=== PATIENT | male | born 1960 | race Caucasian/White ===

== ENCOUNTER 2018-11-15 15:46 | Outpatient (CLI) | payer OTHER ==
--- NOTE | 2018-11-16 14:08 | MRI Report ---
Reason: PAIN IN RIGHT SHOULDER Procedure Date: 11/15/2018 Accession Number: [id number] / [id number] Procedure: MRI - Shoulder RT W/O CPT Code: FULL RESULT: EXAM: RIGHT SHOULDER MRI WITHOUT CONTRAST EXAM DATE: 11/15/2018 04:16 PM. CLINICAL HISTORY: Right shoulder pain. Biceps deformity. Patient was chopping wood. COMPARISON: None. TECHNIQUE: Multiplanar, multisequence T1-weighted and fluid-sensitive sequences of the shoulder without contrast. Other: None. FINDINGS: Acromioclavicular Region: There is an os acromiale. There is edema and cyst formation in the distal ends of the acromion and clavicle, as well as between the os acromiale and the adjacent acromion. The findings suggest moderate osteoarthritis of the acromioclavicular joint and pseudoarticulation at the junction of the acromion and the accessory ossification center. There is narrowing of the subacromial space. There is a moderate sized bursal effusion. Glenohumeral Region: No subluxation. No effusion or loose bodies. The articular cartilage is unremarkable. Bone Marrow: No fracture, marrow edema or bone lesions. Labrum: The edematous proximal stump of the biceps tendon is visible at the biceps labral complex. The labrum appears otherwise intact. Musculature/Rotator Cuff: There is thickening of the supraspinatus tendon consistent with moderate tendinosis. There is a low-grade intrasubstance tear of the insertion measuring approximately 5 x 5 mm. There is a 10 x 8 mm high-grade partial-thickness, intrasubstance tear of infraspinatus with moderate surrounding tendinosis. There is moderate subscapularis tendinosis. There is a high-grade partial-thickness tear of the deep and superficial fibers at the distal insertion. No edema or fatty atrophy. Biceps Tendon: There is a complete rupture of the long head of biceps tendon which is not visible in the bicipital groove. Other: The subcutaneous tissues are unremarkable. IMPRESSION: 1. 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 There is also moderate acromioclavicular osteoarthritis. 2. Tendinosis and low-grade partial thickness tear of supraspinatus. Tendinosis and a high-grade partial-thickness tear of infraspinatus. 3. Severe tendinosis and high-grade partial thickness tearing of the deep and superficial fibers of subscapularis at the insertion. 4. Complete rupture of the long head of biceps. RADIA
== END 2018-11-15 15:47 | disposition home or self-care (01) ==
LOC: DI 15:46
PROVIDERS: ATTEND Family Medicine
DX: M89.8X1 Other specified disorders of bone, shoulder (principal); M19.011 Primary osteoarthritis, right shoulder; M75.101 Unspecified rotator cuff tear or rupture of right shoulder, not specified as traumatic; S46.111A Strain of muscle, fascia and tendon of long head of biceps, right arm, initial encounter

== ENCOUNTER 2018-11-28 11:40 | Day surgery (SDC) | payer OTHER ==
[~2018-11-28 11:40] MED LIST: BUPIVACAINE 0.25% PF 30 ML VIAL ONE
[2018-11-28] MEDS ORDERED: LACTATED RINGERS 1,000 ML IV ONE ×2 (12:06→14:30)
--- NOTE | 2018-11-28 12:13 | ANESTHESIA ---
Pre-Anesthesia VS, & Labs - Diagnosis right long head biceps rupture - Procedure right biceps tensdesis Vital Signs: Temp Pulse Resp BP Pulse Ox 36.6 C 85 18 155/100 H 95 11/28/18 11:50 11/28/18 11:50 11/28/18 11:50 11/28/18 11:50 11/28/18 11:50 Height 6 ft 5 in Weight (kg) 95.25 kg - NPO >8 hours Home Medications and Allergies Home Medications: Ambulatory Orders Acetaminophen [Tylenol] 650 mg PO Q6H PRN 11/22/18 Atorvastatin Calcium [Lipitor] 40 mg PO 11/22/18 Cyanocobalamin (Vitamin B-12) [Vitamin B-12] 3,000 mcg PO 11/22/18 Cyclobenzaprine [Flexeril] 10 mg PO TID PRN 11/22/18 Naproxen [Naprosyn] 500 mg PO 11/22/18 traMADol [Ultram] 50 mg PO ONCE 11/22/18 Acetaminophen [Tylenol] 650 mg PO Q6H PRN 11/22/18 Atorvastatin Calcium [Lipitor] 40 mg PO 11/22/18 Cyanocobalamin (Vitamin B-12) [Vitamin B-12] 3,000 mcg PO 11/22/18 Cyclobenzaprine [Flexeril] 10 mg PO TID PRN 11/22/18 Naproxen [Naprosyn] 500 mg PO 11/22/18 traMADol [Ultram] 50 mg PO ONCE 11/22/18 Allergies/Adverse Reactions: Allergies Allergy/AdvReac Type Severity Reaction Status Date / Time bee venom protein (honey bee) Allergy Anaphylaxis Verified 11/22/18 16:09 Anes History & Medical History - Anesthetic History Anesthesia Complications: reports: No previous complications - Medical History Cardiovascular: reports: None Pulmonary: reports: None Gastrointestinal: reports: None Urinary: reports: None Musculoskeletal: reports: Chronic back pain Endocrine/Autoimmune: reports: None Skin: reports: None Smoking Status: Former smoker - Surgical History General: Appendectomy, Colonoscopy Orthopedic: Hip replacement, Other Exam General: Alert Dental: WNL Mallampati classification: II Respiratory: Lungs clear Cardiovascular: Regular rate, Normal S1, Normal S2 Plan Anesthesia Type: General Consent for Procedure(s) Verified and Reviewed: Yes Code Status: Attempt Resuscitation ASA classification: 1-Healthy patient Is this case an emergency?: No
[2018-11-28] MEDS ORDERED: EPINEPHrine 1 MG/ML AMP ONE (12:49)
[2018-11-28] MEDS ORDERED: ePHEDrine 50 MG/ML VIAL IVP ONE (13:00)
[2018-11-28] MEDS ORDERED: MIDAZOLAM 2 MG/2 ML VIAL IVP ONE (13:00)
[2018-11-28] MEDS ORDERED: PHENYLEPHRINE 50 MG/5 ML VIAL IV ONE (13:00)
[2018-11-28] MEDS ORDERED: ROCURONIUM 50 MG/5 ML VIAL IVP ONE (13:00)
[2018-11-28] MEDS ORDERED: DEXAMETHASONE 4 MG/ML VIAL IVP ONE (13:00)
[2018-11-28] MEDS ORDERED: fentaNYL 100 MCG/2 ML VIAL IVP ONE (13:00)
[2018-11-28] MEDS ORDERED: LIDOCAINE-MPF 2% 5 ML VIAL IM ONE (13:00)
[2018-11-28] MEDS ORDERED: ONDANSETRON 4 MG/2 ML VIAL IVP ONE (13:00)
[2018-11-28] MEDS ORDERED: ACETAMINOPHEN 1,000 MG/100 ML 100 ML IV ONE (13:00)
[2018-11-28] MEDS ORDERED: VASOPRESSIN 20 UNIT/ML VIAL IVP ONE (13:00)
[2018-11-28] MEDS ORDERED: PROPOFOL 200 MG/20 ML VIAL IVP ONE (13:00)
[2018-11-28] MEDS ORDERED: GLYCOPYRROLATE 1 MG/5 ML VIAL IVP ONE (13:00)
[2018-11-28] MEDS ORDERED: NEOSTIGMINE 1 MG/1 ML 10 ML MDV IVP ONE (13:00)
[2018-11-28] MEDS ORDERED: cefTRIAXone 2 GM VIAL ONE (13:46)
[2018-11-28] MEDS ORDERED: BUPIVACAINE 0.25% PF 30 ML VIAL SUBQ ONE ×2 (14:14)
[2018-11-28] MEDS ORDERED: oxyCODONE 5 MG TABLET PO PRN (14:58)
[2018-11-28] MEDS ORDERED: ONDANSETRON 4 MG/2 ML VIAL IVP PRN (14:58)
--- NOTE | 2018-11-28 15:08 | OPERATIVE REPORT ---
Operative Report - Other Other Information/Narrative: Date of Surgery: 20 Nov 2018 Pre-Op Diagnosis: Right shoulder long head of biceps rupture, right shoulder arthritis Procedure: Right shoulder arthroscopy with debridement, open biceps tenodesis Postop Diagnosis: Same Primary Surgeon: Jalil Haider Secondary Surgeon: Nick Rayo Complications: None EBL: 20 cc IMPLANTS: Fiber tack by [employer] POSTOPERATIVE PLAN: 0-2 weeks-Sling at all times. Pendulum exercises 5 times per day. 2-6 weeks-Passive and active range of motion without limitations. No active flexion of the elbow 6-12 weeks-Gradually increase strengthening focusing on rotator cuff and scapular stabilizers. 16 weeks and beyond-Introduce dynamic activities. EXAMINATION UNDER ANESTHESIA: Carroll deformity present ARTHROSCOPIC FINDINGS: Rotator interval: Degenerative tearing Biceps tendon & SLAP: Biceps tendon is torn and frayed tissue remains in the joint, this was debrided Subscapularis: Longitudinal tear of the upper border Rotator Cuff: Superior cuff was intact Labrum: Degenerative tearing Glenoid Cartilage: Grade 2/3 changes Humeral Head Cartilage: Grade 1 softening INDICATION FOR SURGERY: 58-year-old man sustained a long head of biceps tendon tear while throwing wood about 2 weeks ago. I discussed extensively with him that he would likely have no functional deficit but would have a Carroll deformity. He reports that he is a very physical individual and does not want any muscular deficit. I counseled him extensively. The risks, benefits, and alternatives were discussed. Risks included pain, bleeding, infection, damage to nearby structures, lack of symptom relief, implant complications, stiffness, need for further surgeries, DVT, PE, stroke, and even . The patient signed a written consent form. PROCEDURE IN DETAIL: The patient was met in the preoperative holding on the day of the procedure. Operative extremity was signed. Consent was verified. The patient desired to proceed. Regional anesthesia was obtained in the preoperative area. The patient was brought to the operating room and surre ndered to anesthesia. Once general anesthesia was obtained the patient was placed in the beach chair position. A soft kidney pad was placed. The head was secured with the neck in a neutral position. The shoulder and arm were prepped and draped in the standard fashion. A surgical timeout was held to confirm the patient identity, procedure, procedure, laterality, allergies, images, and antibiotics. All were in agreement we proceeded. A standard diagnostic arthroscopy was performed utilizing posterior and anterosuperior portals. The anterosuperior portal was created under direct visualization and localized with a spinal needle. The 7 mm cannula was placed anteriorly. The findings of the diagnostic arthroscopy can be found above. The frayed edge of the biceps tendon was throughout the joint and a shaver was used to debride it. I then debrided the SLAP region as well as portions of the anterior labrum. The subscapularis was left as is because it is not symptomatic. MINI OPEN BICEPS TENODESIS: An 8 cm incision was made near the axillary fold centered over the pectoralis major tendon. Electrocautery was used to obtain hemostasis. The fascia was opened with dissection scissors. Blunt digital dissection was used to identify the intertubercular groove just under the pectoralis major tendon. The long head of the biceps tendon was visualized within this interval. The short head of the biceps was retracted with my finger. I finger dissected distally and found the tendon which had retracted and was bulbous. I then debrided portions of the tendon. A veloz elevator was then used to debride all synovial tissue from the intertubercular groove. A fibertack was placed high within the groove. Both limbs of the fibertack were pulled on and it was well fixed. I then whipstitched the biceps tendon starting 2 cm proximal to the musculotendinous junction down to the musculotendinous junction and back up to the same 2 cm location with a single limb of the suture tack. The other suture was placed once through the tendon at the 2 cm location. I then cut all excess tendon off. The suture limb that was passed the single time was then pulled on and this reduced the tendon nicely into the groove. The elbow was fully straightened and there was no excess tension on the repair site. I then tied 10 reverse half hitches alternating to secure the tendon in its place. The wound was then irrigated copiously. I then closed with 2-0 Vicryl in the dermis and running Monocryl in the skin. The portal was were closed with buried Monocryl. Steri-Strips and a sterile dressing was applied. The portal sites were then closed with 3-0 Monocryl buried. The incisions for open procedures were closed with 2-0 Vicryl in the dermis and a running 3-0 Monocryl in the skin. Mastisol and Steri-Strips were applied. A sterile dressing and a sling was applied. The patient was awakened and transferred to the recovery room.
[2018-11-28 16:10] VITALS: BP 119/76
== END 2018-11-28 11:41 | disposition home or self-care (01) ==
LOC: SDS 11:40
PROVIDERS: ATTEND Orthopaedic Surgery
PROC: 0LS14ZZ Reposition Right Shoulder Tendon, Percutaneous Endoscopic Approach (ICD-10-PCS; principal; 2018-11-28 13:00)
PROC: 0RHJ44Z Insertion of Internal Fixation Device into Right Shoulder Joint, Percutaneous Endoscopic Approach (ICD-10-PCS; 2018-11-28 13:00)
DX: S46.111A Strain of muscle, fascia and tendon of long head of biceps, right arm, initial encounter (principal); M19.011 Primary osteoarthritis, right shoulder; S46.011A Strain of muscle(s) and tendon(s) of the rotator cuff of right shoulder, initial encounter; I10 Essential (primary) hypertension; Z87.891 Personal history of nicotine dependence
CPT/HCPCS: 29828; C1713; J0131; J7120

== ENCOUNTER 2019-11-22 09:06 | Outpatient (CLI) | payer OTHER ==
--- NOTE | 2019-11-22 13:31 | MRI Report ---
Reason: RT WRIST PAIN Procedure Date: 11/22/2019 Accession Number: [id number] / [id number] Procedure: MRI - Wrist RT W/O CPT Code: Final Report FULL RESULT: EXAM: RIGHT WRIST MRI WITHOUT CONTRAST EXAM DATE: 11/22/2019 10:17 AM. CLINICAL HISTORY: Wrist pain along the dorsal margin of the second carpometacarpal joint after fall in July 2019 COMPARISON: None. TECHNIQUE: Multiplanar, multisequence T1-weighted and fluid-sensitive sequences of the wrist without contrast. Other: None. FINDINGS: Bones: No fracture. Mild degenerative appearing marrow edema is present along the radial margin of the ulnar head and there is also mild first carpometacarpal and triscaphe osteoarthritis. Small focal region of marrow edema along the radial margin of the distal capitate is probably also degenerative related to mild trapezoid-capitate osteoarthritis. Radiocarpal and intercarpal alignment are anatomic. Ulnar variance is neutral. Ligaments: There is a full-thickness defect in the triangular fibrocartilage where it overlies the radial margin of the ulnar head. The peripheral attachment of the triangular fibrocartilage is intact. The scapholunate and lunatotriquetral ligaments are intact, though assessment is somewhat limited by nonarthrographic technique. The visualized other intrinsic, extrinsic and collateral ligaments are unremarkable. Tendons: The extensor compartment I through and flexor tendons are unremarkable. Musculature: No edema or fatty atrophy. Other: The contents of the carpal tunnel, including the median nerve, are unremarkable. Guyons canal is unremarkable. No ganglion cysts. There is mild edema in the soft tissues circumferentially about the first carpometacarpal joint consistent with mild nonspecific soft tissue injury. The anterior oblique ligament of the first carpometacarpal joint (also known as the beak ligament) is slightly thickened and edematous though it does appear contiguous suspicious for partial tear. This is best seen on series 701 image 8. The more radial sided ligamentous structures of the first carpometacarpal joint are intact. A skin marker was placed over the region of maximal tenderness. The marker overlies the dorsal aspect of the second carpometacarpal joint. The underlying osseous and soft tissues are unremarkable. IMPRESSION: 1. Probable sprain of the first carpometacarpal joint including low-grade partial tear of the anterior oblique ligament (also known as the beak ligament). Trace first carpometacarpal osteoarthritis is also present. 2. Full-thickness defect in the triangular fibrocartilage where it overlies the radial margin of the ulnar head. Ulnar variance is neutral. 3. Mild triscaphe and trapezoid-capitate osteoarthritis. 4. No fracture. RADIA
== END 2019-11-22 09:07 | disposition home or self-care (01) ==
LOC: DI 09:06
PROVIDERS: ATTEND Family Medicine
DX: M18.11 Unilateral primary osteoarthritis of first carpometacarpal joint, right hand (principal); M24.131 Other articular cartilage disorders, right wrist; M19.031 Primary osteoarthritis, right wrist

== ENCOUNTER 2021-01-16 11:02 | Emergency (ER) | payer OTHER ==
[2021-01-16] MEDS ORDERED: diphenhydrAMINE INJ 50 MG/ML VIAL ONE (11:08)
[2021-01-16] MEDS ORDERED: methylPREDNISolone SUCCINATE 125 MG/2 ML VIAL IVP STA (11:11)
[2021-01-16] MEDS ORDERED: FAMOTIDINE 20 MG/2 ML VIAL IVP STA (11:11)
[2021-01-16] MEDS ORDERED: SODIUM CHLORIDE 0.9% 1,000 ML IV STA (11:12)
--- NOTE | 2021-01-16 11:24 | ED Physician Documentation ---
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 Denies rash, chest pain. Mild nausea. gave him 50 mg of oral Benadryl. Review of Systems Ten Systems: 10 systems reviewed and negative PD PAST MEDICAL HISTORY - Past Medical History Cardiovascular: None Respiratory: None Endocrine/Autoimmune: None GI: None : None HEENT: None Psych: None Musculoskeletal: Chronic back pain Derm: None - Past Surgical History General: Appendectomy, Colonoscopy Ortho: Hip replacement, Other - Present Medications Home Medications: Ambulatory Orders Medication Instructions Recorded Confirmed Acetaminophen [Tylenol] 650 mg PO Q6H PRN 11/22/18 11/28/18 Atorvastatin Calcium [Lipitor] 40 mg PO 11/22/18 Cyanocobalamin (Vitamin B-12) 3,000 mcg PO 11/22/18 [Vitamin B-12] Cyclobenzaprine [Flexeril] 10 mg PO TID PRN 11/22/18 11/22/18 Naproxen [Naprosyn] 500 mg PO 11/22/18 traMADol [Ultram] 50 mg PO ONCE 11/22/18 11/28/18 EPINEPHrine [Epinephrine] 0.3 mg IJ ONCE PRN #2 syr 01/16/21 - Allergies Allergies/Adverse Reactions: Allergies Allergy/AdvReac Type Severity Reaction Status Date / Time bee venom protein (honey bee) Allergy Anaphylaxis Verified 01/16/21 11:15 - Social History Smoking Status: Former smoker PD ED PE NORMAL - Vitals Vital signs reviewed: Yes - General General: Alert and oriented X 3, Other (Diaphoretic, tachypneic) - HEENT HEENT: Atraumatic, PERRL, EOMI, Other (Tongue swollen, lip swollen) - Neck Neck: Other (Normal upper respiratory noises. No stridor) - Cardiac Cardiac: RRR - Respiratory Respiratory: No respiratory distress, Clear bilaterally - Abdomen Abdomen: Non tender, Non distended - Derm Derm: No rash, Other (Diaphoretic) - Extremities Extremities: Other (Edema to bilateral hands) - Neuro Neuro: Alert and oriented X 3, No motor deficit, No sensory deficit - Psych Psych: Other (Anxious affect) Results - Vitals Vitals: Vital Signs - 24 hr 01/16/21 01/16/21 01/16/21 11:05 11:10 11:30 Temperature 36.2 C L Heart Rate 79 100 75 Respiratory 18 19 17 Rate Blood Pressure 128/103 H 86/43 L 129/95 H O2 Saturation 100 94 100 01/16/21 01/16/21 01/16/21 11:45 12:00 12:30 Temperature Heart Rate 91 92 Respiratory 18 17 Rate Blood Pressure 108/72 116/79 O2 Saturation 97 95 94 01/16/21 01/16/21 01/16/21 13:00 13:30 14:00 Temperature 36.4 C L Heart Rate 89 90 90 Respiratory 17 14 19 Rate Blood Pressure 118/82 H 101/83 H 110/79 O2 Saturation 94 94 96 01/16/21 01/16/21 01/16/21 14:30 15:00 15:30 Temperature 36.5 C 36.5 C 36.6 C Heart Rate 82 79 78 Respiratory 19 16 18 Rate Blood Pressure 118/82 H 124/92 H 123/90 H O2 Saturation 97 99 98 01/16/21 01/16/21 16:00 16:35 Temperature 36.6 C 36.7 C Heart Rate 97 78 Respiratory 17 16 Rate Blood Pressure 143/92 H 138/98 H O2 Saturation 95 98 Oxygen O2 Source Room air PD MEDICAL DECISION MAKING - ED course ED course: Symptoms resolved after 0.3 of IM epi, 50 IV benadryl administered. 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 Nausea, lightheadedness completely resolved. Patient feels like his swelling is resolved, however his states that the lips are not completely back to baseline. I discussed with him and his family that We can continue to monitor in the emergency department but they elected to go home, stating that they leave it minutes away and will return if he has any new or worsening symptoms. Advised him to peanut picker their EpiPen prescription immediately. Will redose Benadryl prior to discharge. Strict return precautions given. They will follow up with her primary doctor for referral to allergy and immunology. Departure - Departure Disposition: 01 Home, Self Care Clinical Impression: Anaphylactic reaction Condition: Good Instructions: EpiPen Auto Injector Dc, ED Anaphylaxis General Prescriptions: EPINEPHrine [Epinephrine] 0.3 mg IJ ONCE PRN #2 syr PRN Reason: Anaphylaxis Comments: You were seen in the emergency department for a severe allergic reaction (anaphylaxis). We gave you Pepcid, Benadryl, Solu-Medrol, and epinephrine in the emergency department. I am glad that you are feeling better! Make sure that you peanut picker your EpiPen immediately and return to the emergency department if you have to use it or if you have any other new or worsening symptoms or other concerns. Follow-up with your primary doctor for referral to allergy and immunology. Discharge Date/Time: 01/16/21 16:37
[2021-01-16] MEDS ORDERED: EPINEPHrine 1 MG/ML AMP IM STA (11:49)
[2021-01-16] MEDS ORDERED: diphenhydrAMINE INJ 50 MG/ML VIAL IVP STA (11:50)
[2021-01-16] MEDS ORDERED: diphenhydrAMINE 25 MG CAPSULE PO STA (16:11)
[2021-01-16 16:36] VITALS: BP 138/98
== END 2021-01-16 16:37 | disposition home or self-care (01) ==
LOC: ED 11:02
DX: T63.461A Toxic effect of venom of wasps, accidental (unintentional), initial encounter (principal); T78.2XXA Anaphylactic shock, unspecified, initial encounter; Z87.891 Personal history of nicotine dependence
CPT/HCPCS: 36415; 96372; 96374; 96375; 99284; 99285; A9270; J1200

== ENCOUNTER 2021-01-19 13:32 | Outpatient (CLI) | payer OTHER ==
--- NOTE | 2021-01-19 16:07 | MRI Report ---
PROCEDURE: Cervical Spine W/O INDICATIONS: PAIN IN RIGHT SHOULDER TECHNIQUE: Noncontrast sagittal T1 spin echo and T2 fast spin echo, sagittal STIR, foraminal oblique sagittal T2 fast spin echo, and axial gradient echo or T2 fast spin echo through the cervical spine. COMPARISON: None. FINDINGS: Image quality: Mild motion is present sequences, limiting areas of fine detail evaluation. Alignment and Curvature: There is trace retrolisthesis of C2 on C3, C5 on C6, C6 on C7, trace james listhesis of C7 on T1. Bone Marrow: Marrow demonstrates normal overall signal. Minimal scattered reactive endplate changes are present. Spinal Cord: Visualized spinal cord has normal size and signal. No cerebellar tonsillar herniation. Paraspinous Soft Tissues: No paravertebral masses. Prevertebral soft tissues are normal in thicknes s. Discs: Overall moderate to severe desiccation is present throughout the cervical spine most severe at C5-6 and C6 C2-C3: Mild disc bulge without spinal stenosis. Severe bilateral foraminal narrowing with uncoverteb ral hypertrophy. C3-C4: Mild disc bulge with moderate spinal stenosis. Severe bilateral foraminal narrowing with unc overtebral hypertrophy, right greater than left. C4-C5: Mild disc bulge with severe spinal stenosis and mild canal compression. Severe left and moder ate right foraminal narrowing with uncovertebral hypertrophy. Motion is present at this level somewha t limiting evaluation. C5-C6: Mild disc bulge with mild spinal stenosis. Moderate to severe right and mild left foraminal n arrowing with uncovertebral hypertrophy. C6-C7: Mild disc bulge with mild spinal stenosis. Moderate right foraminal narrowing with uncoverteb ral hypertrophy. C7-T1: Mild disc bulge with moderate spinal stenosis. There is a T2 focus measuring 5 mm located danuta ng the posterior left lateral aspect of the spinal canal adjacent to the facet joint. No foraminal na rrowing. IMPRESSION: 1. Multilevel spinal stenosis most severe at C4-5 secondary to disc bulge. It is noted that there is a T2 focus at the posterior left lateral aspect of the spinal canal at C7-T1 causing moderate spinal stenosis and felt to represent an uncovertebral joint cyst. 2. Overall moderate to severe multilevel foraminal narrowing predominantly secondary to uncovertebral arthropathy. Reviewed by: Viviana Arciniega MD on 01/19/2021 4:06 PM PDT Approved by: Viviana Arciniega MD on 01/19/2021 4:06 PM [facility] Station ID: [id number]
== END 2021-01-19 13:33 | disposition home or self-care (01) ==
LOC: DI 13:32
PROVIDERS: ATTEND Family Medicine
DX: M25.511 Pain in right shoulder (principal); M50.221 Other cervical disc displacement at C4-C5 level; M48.02 Spinal stenosis, cervical region

== ENCOUNTER 2021-02-02 09:15 | Outpatient (CLI) | payer OTHER ==
--- NOTE | 2021-02-03 12:42 | MRI Report ---
PROCEDURE: Shoulder RT W/O INDICATIONS: PAIN IN RIGHT SHOULDER TECHNIQUE: Noncontrast oblique coronal T2 fast spin echo with fat saturation, oblique sagittal T1 spin echo and T2 fast spin echo with fat saturation, axial T1 spin echo and T2 fast spin echo with fat saturation t hrough the shoulder. COMPARISON: MRI right shoulder without contrast, 11/15/2018. FINDINGS: Image quality: Limited due to motion artifacts. Rotator cuff: There is high-grade partial thickness versus full-thickness tear of the subscapularis tendonn and there is partial tear of the supraspinatus involving both articular and bursal surface wi th associated tendinitis. Infraspinous tendinitis is present. No rotator cuff muscle atrophy on sagi ttal images. Bones and bursae: No bone marrow contusions or fractures. Moderate acromioclavicular and glenohumera l joint degeneration. There is an os acromiale. No pathologic subacromial/subdeltoid bursal fluid i s present. Capsule and soft tissues: In the absence of intra-articular contrast, the labrum and glenohumeral li gaments appear intact. The long head of the biceps tendon is not well seen. The bicipital groove is empty. The rotator interval appears normal, without fibrosis. The coracohumeral ligament is normal in thickness. IMPRESSION: 1. High-grade partial-thickness versus full thickness tear of the subscapularis tendon. 2. High grade partial thickness tear and tendinitis of the supraspinatus tendon. 3. Infraspinatus tendinosis. 4. The long head of the biceps tendon is not well seen. The bicipital groove is empty. The findings may be secondary to tenodesis or chronic tear of the long head of the biceps tendon. 5. Os acromiale. 6. Moderate acromioclavicular and glenohumeral joint degeneration. Reviewed by: Aris Abraham MD on 02/03/2021 12:41 PM PDT Approved by: Aris Abraham MD on 02/03/2021 12:41 PM PDT Station ID: [id number]
== END 2021-02-02 09:16 | disposition home or self-care (01) ==
LOC: DI 09:15
PROVIDERS: ATTEND Family Medicine
DX: S46.801A Unspecified injury of other muscles, fascia and tendons at shoulder and upper arm level, right arm, initial encounter (principal); M19.011 Primary osteoarthritis, right shoulder; M89.211 Other disorders of bone development and growth, right shoulder

== ENCOUNTER 2021-02-19 14:54 | Outpatient (CLI) | payer OTHER ==
--- NOTE | 2021-02-19 15:37 | XRAY Report ---
PROCEDURE: Cervical Spine Complete INDICATIONS: CERVICAL SPINE STENOSIS TECHNIQUE: 5 view(s) of the cervical spine were acquired. COMPARISON: None. FINDINGS: Bones: No fractures or dislocations to the C7-T1 level. There is straightening of normal cervical lo rdosis. Moderate to severe degenerative disc disease and bilateral facet hypertrophic changes are not ed throughout cervical spine most prominent involving C5-6 and C6-7 levels . The lateral masses of C1 appear intact on the odontoid view. No suspicious bony lesions. There is decreased range of motion on lateral flexion and extension views with preserved cervical spi ne alignment. Soft tissues: No prevertebral soft tissue swelling. IMPRESSION: Moderate to severe degenerative disc disease throughout cervical spine more prominent at C4-5 and C5-6 levels. Decreased range of motion with preserved cervical spine alignment. No acute fr acture or dislocation. Reviewed by: Naveen Martell MD on 02/19/2021 3:35 PM PDT Approved by: Naveen Martell MD on 02/19/2021 3:35 PM PDT Station ID: [id number]
--- NOTE | 2021-02-19 16:58 | CT Report ---
PROCEDURE: CERVICAL SPINE WO INDICATIONS: CERVICAL SPINE STENOSIS TECHNIQUE: Noncontrast 3 mm thick sections acquired from the skull base to the T4 level. Sagittal and coronal r eformats were then constructed. For radiation dose reduction, the following was used: automated exp osure control, adjustment of mA and/or kV according to patient size. COMPARISON: MRI dated 01/19/2021 FINDINGS: Image quality: Excellent. Bones: No fractures or dislocations. Visualized superior ribs are intact. Loss of normal cervical lordosis. Multilevel disc space narrowing and endplate osteophyte formation, worst at C4-C5, C5-C6, a nd C6-C7. Multilevel facet hypertrophy throughout the mid and lower cervical spine. Multilevel canal stenoses, worst at C4-C5, where there appears to be cord flattening, better evaluated by recent MRI. Soft tissues: Prevertebral soft tissues are normal in thickness. No paravertebral hematomas. No ap ical pneumothoraces. IMPRESSION: Multilevel degenerative disc and facet disease as described above. Reviewed by: Librado Dobbs MD on 02/19/2021 4:57 PM PDT Approved by: Librado Dobbs MD on 02/19/2021 4:57 PM PDT Station ID: [id number]
== END 2021-02-19 14:55 | disposition home or self-care (01) ==
LOC: DI 14:54
PROVIDERS: ATTEND Neurological Surgery
DX: M48.02 Spinal stenosis, cervical region (principal); M47.812 Spondylosis without myelopathy or radiculopathy, cervical region; M50.321 Other cervical disc degeneration at C4-C5 level

== ENCOUNTER 2021-04-27 12:48 | Outpatient (CLI) | payer OTHER ==
--- NOTE | 2021-04-27 14:13 | XRAY Report ---
PROCEDURE: Cervical Spine 2 View INDICATIONS: VISIT FOR WOUND CHECK TECHNIQUE: 3 view(s) of the cervical spine were acquired. COMPARISON: February 19, 2021. FINDINGS: C-SPINE: No acute, displaced fracture or malalignment. Posterior elements fixation hardware is seen a t C2-T1. The vertebral body heights are maintained. At least moderate disc height loss, most prominen t at C5-C7. Prominent anterior endplate osteophytosis. SOFT TISSUES: No prevertebral soft tissue thickening. IMPRESSION: 1.No acute osseous abnormality. Reviewed by: Lm Christiansen MD on 04/27/2021 2:11 PM PDT Approved by: Lm Christiansen MD on 04/27/2021 2:11 PM PDT Station ID: [id number]
== END 2021-04-27 12:49 | disposition home or self-care (01) ==
LOC: DI 12:48
PROVIDERS: ATTEND Neurological Surgery
DX: Z51.89 Encounter for other specified aftercare (principal); Z98.1 Arthrodesis status

== ENCOUNTER 2021-09-02 07:10 | Outpatient (CLI) | payer OTHER ==
[2021-09-02] MEDS ORDERED: GADOBUTROL 10 MMOL/10 ML VIAL ONE (07:30)
--- NOTE | 2021-09-02 12:31 | MRI Report ---
PROCEDURE: Lumbar Spine W/WO INDICATIONS: LOW BACK PAIN CONTRAST: IV CONTRAST: Gadavist ml: 8.8 TECHNIQUE: Noncontrast sagittal T1 spin echo and T2 fast spin echo, sagittal STIR, axial T1 and T2 fast spin ech o through the lumbar spine. Additional coronal T2 fast spin echo was performed. After the administra tion of contrast, sagittal and axial T1 spin echo with fat saturation through the lumbar spine. COMPARISON: None. FINDINGS: Image quality: Excellent. Alignment and curvature: There is mild S-shaped curvature of the visualized thoracolumbar spine. Marrow: No suspicious marrow replacing process is seen. Type I Modic degenerative endplate changes ar e seen adjacent to the L4-5 disc space as well as the L2-3 disc space on the left and the L1-2 inters pace posteriorly. Type II Modic degenerative endplate changes are seen at the T12-L1 and L3-4 levels. A probable benign hemangioma is seen in the L2 vertebral body and also the T12 vertebral body. No ac gulkana vertebral body compression fracture. No suspicious masslike osseous enhancement. Spinal cord: Conus medullaris terminates at the L1 vertebral body level. Visualized spinal cord dem onstrates normal signal, without suspicious enhancement. Paraspinous soft tissues: T2 hyperintense cysts are seen in the left kidney and there is a small righ t parapelvic T2 hyperintense cyst in the right kidney. There is grade 2 fatty infiltration of the par aspinous musculature. T12-L1: Severe loss of disc space height is seen with degenerative endplate changes and circumferent ial disc bulging/disc-osteophyte complex and moderate bilateral facet hypertrophy. Findings result in mild narrowing of the spinal canal as well as moderate right and mild left neural foraminal narrowin g. L1-L2: Severe loss of disc space height with circumferential disc bulging/disc osteophyte complex and superimposed left paracentral disc extrusion (image 29 of series 701 and image 10 of series 401) versus focal osteophyte formation. Mild bilateral facet hypertrophy. Findings result in mild narrowin g of the spinal canal and effacement of the left lateral recess that may result in impingement of the traversing left L2 nerve roots. There is mild right and [id number] left neural foraminal narro wing. L2-L3: There is moderate to severe loss of disc space height with disc desiccation and mild circum ferential disc bulging/disc-osteophyte complex as well as mild to moderate bilateral neural foraminal narrowing and bulging of the ligamentum flavum. Findings result in moderate narrowing of the spinal canal with crowding of the lateral recesses as well as mild right and mild to moderate left neural fo raminal narrowing. L3-L4: Disc desiccation with severe loss of disc space height and degenerative endplate changes wit h circumferential disc-osteophyte complex, moderate facet hypertrophy, and buckling of the ligamentum flavum. Findings result in moderate narrowing of the spinal canal with crowding of the lateral reces ses and mild to moderate bilateral neural foraminal narrowing. L4-L5: Disc desiccation and loss of disc space height with circumferential disc bulging that is ecc entric towards the right as well as moderate to severe right and moderate left facet hypertrophy and bulging of the ligamentum flavum. Findings result in severe narrowing of the spinal canal with efface ment of the right lateral recess and crowding of the left lateral recess as well as severe right and mild to moderate left neural foraminal narrowing. L5-S1: Disc desiccation and loss of disc space height with circumferential disc bulging and mild to moderate bilateral facet hypertrophy that is highly worse on the right. Findings result in mild narr owing of the spinal canal as well as severe right and severe left neural foraminal narrowing. IMPRESSION: 1.Multilevel moderate to severe degenerative disc disease and facet hypertrophy as described in marc miranda in the body of report resulting in multilevel narrowing of the spinal canal and neural foramina. Mi ld shaped scoliosis. 2.Spinal canal narrowing is severe at the L4-5 level where there is also effacement of the right late ral recess that could result in impingement of the traversing right L5 nerve root. Moderate spinal ca nal narrowing is seen at the L2-3 and L3-4 levels. Additionally, a left paracentral disc extrusion ve rsus osteophyte is seen at the L1-2 level that effaces the left lateral recess and may impinge on the traversing left L2 nerve root. 3.Neuroforaminal narrowing is severe at the L4-5 level on the right and at the L5-S1 level bilaterall y. Recommend correlation with neurologic exam findings. 4.No suspicious enhancing osseous or soft tissue mass. No abnormal intrathecal enhancement. Reviewed by: Zain Everett MD on 09/02/2021 12:29 PM PST Approved by: Zain Everett MD on 09/02/2021 12:29 PM PST Station ID: [id number]
[2021-09-02] MEDS ORDERED: GADOBUTROL 10 MMOL/10 ML VIAL IVP ONE (16:50)
== END 2021-09-02 07:11 | disposition home or self-care (01) ==
LOC: DI 07:10
PROVIDERS: ATTEND Family Medicine
DX: M51.36 Other intervertebral disc degeneration, lumbar region (principal); M48.061 Spinal stenosis, lumbar region without neurogenic claudication; M47.816 Spondylosis without myelopathy or radiculopathy, lumbar region; M51.37 Other intervertebral disc degeneration, lumbosacral region; M48.07 Spinal stenosis, lumbosacral region; M47.817 Spondylosis without myelopathy or radiculopathy, lumbosacral region; M51.26 Other intervertebral disc displacement, lumbar region
CPT/HCPCS: 72158; A9585

== ENCOUNTER 2023-01-28 08:00 | Outpatient (CLI) | payer OTHER | END 2023-01-28 23:59 | disposition home or self-care (01) | LOC: LAB.N 08:00 | PROVIDERS: ATTEND Nurse Practitioner | DX: N39.0 Urinary tract infection, site not specified (principal) | CPT/HCPCS: 87086; 87181 ==

== ENCOUNTER 2023-02-23 09:45 | Outpatient (CLI) | payer OTHER | END 2023-02-23 10:00 | disposition home or self-care (01) | LOC: LAB.N 09:45 | PROVIDERS: ATTEND Family Medicine | DX: N39.0 Urinary tract infection, site not specified (principal) | CPT/HCPCS: 87086; 87181 ==